=== PATIENT | female | born 1990 | race Caucasian/White ===

== ENCOUNTER 2018-05-08 17:13 | Emergency (ER) | payer OTHER ==
[~2018-05-08] VITALS: Ht 162.5 cm; Wt 68.0 kg
[~2018-05-08 17:13] MED LIST: AMOXICILLIN500 M2 PO; AUGMENTIN 875 M1 TAB PO; CLARITIN10 MG PO; DARVOCET N 1001 TAB PO; KEFLEX500 MG PO; KENALOG0.1% TP; LEVAQUIN750 MG PO; MEDROL DOSEPAK4 MG PO; MOTRIN800 MG PO; TOBRADEX 0.1%-0.5 ML OPH
[2018-05-11 09:09] LABS: HIV 1+2 AB + HIV1 P24 AG Non Reactive (Non Reactive)
[2018-05-11 10:05] LABS: HEPATITIS B SURFACE AG Negative (Negative); HEPATITIS C AB <0.1 (0.0-0.9)
== END 2018-05-08 17:56 | disposition home or self-care (01) ==
LOC: ED 17:13
PROVIDERS: Physician Assistant
DX: S81.031A Puncture wound without foreign body, right knee, initial encounter (principal); W46.1XXA Contact with contaminated hypodermic needle, initial encounter; Y93.89 Activity, other specified; Y92.59 Other trade areas as the place of occurrence of the external cause; Y99.9 Unspecified external cause status

== ENCOUNTER → 2024-03-15 | Outpatient (CLI) | payer OTHER ==
[2024-03-15 10:23] LABS: HEMATOCRIT 42.6 % (37.0-47.0); MEAN CELL VOLUME 89.5 fl (81.0-99.0); MEAN CORPUSCULAR HGB 30.3 pg (27.0-31.0); MEAN CORPUSCULAR HGB CONC 33.8 g/dl (33.0-37.0); MEAN PLATELET VOLUME 8.6 fl (9.6-12.3); PLATELET COUNT AUTOMATED 430 10*3/uL (130-400); RED BLOOD COUNT 4.76 10*6/uL (4.10-5.10); RETICULOCYTE % 2.21 % (0.50-2.50); WHITE BLOOD COUNT 7.6 10*3/uL (4.8-10.8)
[2024-03-15 10:52] LABS: ATYPICAL LYMPHS 1 % (0-0); PLATELET SUFFICIENCY HIGH (NORMAL); TOTAL CELLS COUNTED 100 #CELLS
[2024-03-15 11:04] LABS: ALKALINE PHOSPHATASE 70 U/L (46-116); BUN 6 mg/dl (9-23); CHLORIDE 104 mmol/L (98-107); CHOLESTEROL 191 mg/dL (<200); GAMMA GLUTAMYL TRANSPEPTIDASE 38 U/L (0-73); LDL CHOLESTEROL 114 mg/dL (9-159); POTASSIUM 3.3 mmol/L (3.4-5.1); SGPT/ALT 30 U/L (5-49); THYROXINE (T4) TOTAL 7.9 ug/dl (4.5-10.9); TOTAL PROTEIN 7.7 gm/dL (6.0-8.0); TRIGLYCERIDES 181 mg/dl (<150); VITAMIN D, 25-HYDROXY 18.9 ng/mL (30-100)
[2024-03-15 11:06] LABS: B-hCG (QUALITATIVE) NEGATIVE (NEGATIVE); BETA-HCG, QUANT < 3.0 mIU/mL (3-10)
[2024-03-15 11:15] LABS: BILIRUBIN Negative (Negative); CLARITY Clear (Clear); COLOR Yellow (Yellow); GLUCOSE Negative (Negative); KETONE Negative (Negative)
[2024-03-15 11:16] LABS: BLOOD Negative (Negative); LEUKO ESTERASE Negative (Negative); NITRITE Negative (Negative); PH 6.5 (4.5-8.0); RBC 0-2 rbc/hpf (0-2); SPECIFIC GRAVITY <= 1.005 (1.001-1.030); UROBILINOGEN 0.2 E.U./dl (0.0-1.0); WBC 0-2 wbc/hpf (0-5)
[2024-03-16 04:06] LABS: TOTAL PROTEIN, SERUM 7.3 g/dL (6.0-8.5)
[2024-03-16 08:10] LABS: SEX HORMONE BINDING GLOBULIN 25.2 nmol/L (24.6-122.0)
[2024-03-16 13:07] LABS: A/G RATIO 1.4 (0.7-1.7); ALBUMIN 4.2 g/dL (2.9-4.4); ALPHA-1-GLOBULIN 0.2 g/dL (0.0-0.4); ALPHA-2-GLOBULIN 0.8 g/dL (0.4-1.0); ANTI-DSDNA ANTIBODIES <1 IU/mL (0-9); BETA GLOBULIN 1.1 g/dL (0.7-1.3); GLOBULIN, TOTAL 3.1 g/dL (2.2-3.9)
[2024-03-17 08:12] LABS: INSULIN-LIKE GROWTH FACTOR-1 142 ng/mL (84-281)
== END | disposition home or self-care (01) ==
LOC: LAB 09:53
PROVIDERS: ATTEND Family Medicine
DX: E55.9 Vitamin D deficiency, unspecified (principal); R79.89 Other specified abnormal findings of blood chemistry; R53.83 Other fatigue; E78.5 Hyperlipidemia, unspecified